=== PATIENT | female | born 1970 | race Caucasian/White ===

== ENCOUNTER 2016-05-22 07:13 | Day surgery (SDC) | payer BC ==
[2016-05-22] VITALS (7 sets, daily range): BP systolic 104–124; BP diastolic 51–77; PULSE 58–72; RESP 13–16; TEMP 98–98.6; O2SAT 95–100; Ht 165.1 cm; Wt 103.4 kg
[~2016-05-22] VITALS: Ht 165.1 cm; Wt 103.4 kg
[~2016-05-22 07:13] MED LIST: AMPH15TA2 PO; FLUO20CA30 PO; LIDOCAINE 1% (10mg/ml) 2ml SDV INJ ONE; LR 1,000 ML IV SCH
[2016-05-22] MEDS ORDERED: LIDOCAINE 1%/EPI 1:100,000 20ml MDV ONE (08:32)
--- NOTE | 2016-05-22 08:45 | ANESPREOP ---
Anesthesia Record Date and Time DATE: 05/22/16 TIME: 08:43 Pre-Op Diagnosis malignant melanoma Left Leg Proposed Surgical Procedure EXCISION OF MALIGNANT ON LT. LATERAL THIGH WITH LOCAL VS SKIN GRAFT NPO since: mn Allergies: Coded Allergies: No Known Allergies (Unverified , 05/22/16) Ht/Wt/BMI Height: 5 ' 5.00 " Weight: 103.400 kg BMI: 37.9 kg/m2 Vital Signs Date Time Temp Pulse Resp B/P Pulse Ox O2 Delivery O2 Flow Rate FiO2 05/22/16 07:42 98.6 67 13 124/77 98 Room Air Medications Inpatient Medications Current Medications Medications (Trade) Dose Ordered Sig/Mirta Start Time Stop Time Status Last Admin Dose Admin Lactated Ringer's (Lactated Ringers) 1,000 ml @ 50 mls/hr Q20H 05/22/16 07:00 05/22/16 08:16 50 MLS/HR Dextroamphetamine/Amphetamine (Adderall 15 mg Tablet) 15 Mg Tablet, 1 TAB PO BID , (Reported) Last Taken: on 05/21/16 1500 Fluoxetine HCl (Prozac) 20 Mg Capsule, 1 CAP PO DAILY, (Reported) Last Taken: on 05/21/16 0800 Currently on Beta Dereck: No Medical/Surgical History Anesthesia PMH: Reports: Cancer (Melanoma Left Thigh), Denies: Anesthesia Reactions, Glaucoma, Malignant Hyperthermia (no family history MH), Sleep Apnea Smoking Status: Current some day smoker Has pt. smoked today?: No Use Chewing Tobacco?: No Second Hand Exposure: No Substance Use Type: does not use Alcohol Intake: a few times a week Past Surgical History Orthopedic Surgeries: Abdominal Surgeries: Genitourinary Surgeries: Cardiac Surgeries: Endocrine Surgeries: Reproductive Surgeries: Neurological Surgeries: Ear Surgeries: Nose Surgeries: Throat Surgeries: Yes - TONSILLECTOMY Other Surgeries: Yes - WISDOM TEETH REMOVED Anesthesia Adverse Reactions: FOUND none Family Hx of Anesthesia Advers: none Hx of Motion Sickness: No Pertinent Findings Test 05/22/16 07:35 Urine Test Negative (NEGATIVE) EKG Rhythm: Sinus Bradycardia Physical Exam Respiratory: Lungs clear Cardiovascular: FOUND Regular rate, rhythm, FOUND No murmur Airway Assessment Mallampati Score: I TMD: 3 Fingerbreadths Neck Extension: Good Overall Assessment: No Airway Concerns ASA: 2 Plan Anesthesia Plan: TIVA Discussion Discussed risks/options/alternatives of anesthesia and questions answered. Patient consents. Nursing pain assessment noted. Present: Spouse Attestation Statement Prior to the delivery of any anesthetic medication, I examined the patient, developed the plan, obtained the patient's consent and discussed the risk and benefits of the procedure with the patient/guardian. MICHAELLE PARRISH CRNA May 22, 2016 08:45
[2016-05-22] MEDS ORDERED: FENTANYL 100mcg/2ml INJECTION ONE (08:56)
[2016-05-22] MEDS ORDERED: PROPOFOL 500mg 50 ML IV ONE (08:56)
[2016-05-22] MEDS ORDERED: MIDAZOLAM 2mg/2ml INJECTION IV ONE (09:00)
[2016-05-22] MEDS ORDERED: CEFAZOLIN 1 GRAM INJECTION IV ONE (09:00)
--- NOTE | 2016-05-22 09:33 | PDPROCED ---
Procedure Note Date 05/22/16 Procedure Name Wide re-excision of malignant melanoma left lateral thigh with complex closure: Incision size 3 cm, excision size 5 cm, final defect [id number] Procedure Detail Preop dx: Status post excision of malignant melanoma left lateral thigh: Breslow level 0.4 mm; margins clear, tumor within 2.2 mm Postop dx: Same Anesthesia: TIVA EBL: Less than 15 ml Case: Clean Complications: None ADOLFO GARIBAY MD May 22, 2016 09:33
[2016-05-22] MEDS ORDERED: CEPH-583 PO (09:51)
[2016-05-22] MEDS ORDERED: ACET1TAB12 PO (09:51)
[2016-05-22] MEDS ORDERED: ONDANSETRON 4mg/2ml INJECTION IV PRN (10:00)
[2016-05-22] MEDS ORDERED: ATROPINE 1mg/10ml Syringe IV PRN (10:00)
[2016-05-22] MEDS ORDERED: HYDROCODONE/APAP 5 mg/325 mg TABLET PO PRN (10:00)
--- NOTE | 2016-05-22 10:05 | ANESPO ---
Post-Op Note Date 05/22/16 Time: 10:05 Status Pt Participated in Evaluation: Pt participated in person Vital Signs Date Time Temp Pulse Resp B/P Pulse Ox O2 Delivery O2 Flow Rate FiO2 05/22/16 07:42 98.6 67 13 124/77 98 Room Air Respiratory Function: Airway patent, Regular respirations Cardiovascular Function: Regular pulse Mental Status: Alert/oriented Pain Level Intensity: 1 Hydration: Taking po fluids Complications during Recovery None apparent Follow-Up Instructions Instructions Per Surgeon CONCHA MICHAELS CRNA May 22, 2016 10:05
--- NOTE | 2016-05-22 12:26 | OPNOTEF ---
DATE OF OPERATION 05/22/2016 PREOPERATIVE DIAGNOSIS Status post excision of malignant melanoma left lateral thigh: Breslow level 0.4 mm; margins clear, tumor within 2.2 mm of closest margin POSTOPERATIVE DIAGNOSIS Status post excision of malignant melanoma left lateral thigh: Breslow level 0.4 mm; margins clear, tumor within 2.2 mm of closest margin OPERATION Wide reexcision of malignant melanoma of left lateral thigh with complex closure : incision size 3 cm, excision size 5 cm, final defect 5.5 x 4 x 2 cm. SURGEON Chloe Gamboa M.D. ANESTHESIA TIVA INDICATIONS The patient is a 45-year-old woman who presented to the office to discuss treatment options of malignant melanoma of her left lateral thigh; she had initially been referred by Dr. Boni Taylor. The pigmented lesion of her left lateral thigh had been present for an unknown period of time. She had first noticed it approximately six months ago because it became raised. She denied any bleeding. 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 However, when complete excision of the lesion was performed, malignant melanoma with Breslow level of 0.4 cm was the final diagnosis. There was no ulceration or increased mitotic rate. The tumor was also within 2.2 mm of the closest margin and thus it was deemed advisable to proceed with a wide reexcision of the site. On exam, she had a 3 cm healing incision site. In detailed discussion with the patient preoperatively, the risks, benefits and alternatives of wider excision were reviewed including, but not limited to, bleeding, infection, poor or keloid scarring, residual and/ or recurrent disease, partial or complete loss of the flap or graft. We specifically discussed that we would attempt to close the wound primarily; however, if this were not possible, local flap versus a graft would be performed. The patient understood and wished to proceed. DESCRIPTION OF PROCEDURE The patient was marked preoperatively and then brought to the operating room where, after suitable TIVA had been obtained, the left leg was prepped and draped in the usual sterile manner. The involved area was then infiltrated with 1% lidocaine with epinephrine. The lesion was then excised with 1 cm margins in the skin and down to the fascial layer. This was then handed off as a specimen with a tag at the 12 o'clock proximal position. The wound was widely undermined and at the time it was noted that it was possible to close the wound primarily. This was done in several layers after removing the dog ears, using interrupted buried sutures of 3-0 PDS, a running 3-0 polyglyconate V-Loc suture for the dermal layer, and a running subcuticular suture of 4-0 Monocryl. Benzoin and Steri-Strips were applied, as well as a dry sterile dressing and Mefix tape. The patient was then brought to the recovery room in stable condition. Estimated blood loss was less than 50 mL. The case was clean. Specimens: Reexcision of the malignant melanoma excision site. MTDD
== END 2016-05-22 10:55 | disposition home or self-care (01) ==
LOC: SCU 07:13
PROVIDERS: ATTEND Surgery Plastic and Reconstructive Surgery
DX: C43.72 Malignant melanoma of left lower limb, including hip (principal)
CPT/HCPCS: 11606; 13121; 81025; J0690; J2250; J2704; J3010; J7120

== ENCOUNTER → 2016-06-14 | Outpatient (CLI) | payer BC ==
[~2016-06-14] MED LIST changes: +ACET1TAB12 PO; +CEPH-583 PO; -LIDOCAINE 1% (10mg/ml) 2ml SDV INJ ONE; -LR 1,000 ML IV SCH
[2016-06-14 12:16] LABS: BASOPHILS % (AUTO) 0.2 % (0-2); EOSINOPHILS # (AUTO) 0.2 T/MM3 (0-0.5); HCT - HEMATOCRIT 41.5 % (36-46); IMMATURE GRANULOCYTE # (AUTO) 0.01 T/MM3 (0.00-0.03); IMMATURE GRANULOCYTE % (AUTO) 0.1 % (0.0-0.5); LYMPHOCYTES # (AUTO) 3.3 T/MM3 (1-4.8); LYMPHOCYTES % (AUTO) 39.3 % (23-45); MEAN CORPUSCULAR HGB CONC(MCHC 33.7 GM/DL (31-37); MEAN CORPUSCULAR VOLUME 91.8 UM3 (80-100); MEAN PLATELET VOLUME 10.4 UM3 (9.4-12.4); MONOCYTES # (AUTO) 0.6 T/MM3 (0-0.8); MONOCYTES % (AUTO) 7.1 % (0-9.0); NEUTROPHILS #(AUTO)-ABSOLUTE 4.3 T/MM3 (1.8-7.7); NEUTROPHILS % (AUTO) 51.3 % (33-66); RED BLOOD COUNT 4.52 M/MM3 (4.00-5.20); WBC - WHITE BLOOD COUNT 8.3 T/MM3 (4.5-11.0)
[2016-06-14 12:32] LABS: ALBUMIN 4.6 G/DL (3.5-5.0); ALBUMIN/GLOBULIN RATIO 1.4 RATIO (1.1-2.2); ALKALINE PHOSPHATASE 80 U/L (38-126); ALT (SGPT) 48 U/L (9-52); ANION GAP 14 MEQ/L (5-15); AST (SGOT) 31 U/L (14-36); BUN/CREATININE RATIO 15 RATIO (6-26); CALCIUM 10.1 MG/DL (8.4-10.2); CHLORIDE 104 MEQ/L (98-107); CO2 - CARBON DIOXIDE 25 MEQ/L (22-30); CREATININE 0.8 MG/DL (0.7-1.2); GLOMERULAR FILTRATION RATE 78; GLUCOSE 108 MG/DL (65-110); LDH 371 U/L (313-618); POTASSIUM 4.6 MEQ/L (3.6-5); SODIUM 143 MEQ/L (134-144)
--- NOTE | 2016-06-14 13:12 | DI ---
INDICATION: ITS.REASON: C43.72 Malignant melanoma of left lower limb, including hip PROCEDURE: CHEST 2-VIEWS UPRIGHT (PA \T\ LAT) Encounter: Initial COMPARISON: None FINDINGS: The lungs are clear without evidence of focal abnormal airspace opacity. There is no pleural effusion or pneumothorax. The heart size, mediastinal contours and pulmonary vascularity are within normal limits. There is no significant skeletal abnormality. IMPRESSION: No acute cardiopulmonary disease. No radiographic evidence of pulmonary metastatic disease. .
== END ==
LOC: IMA 11:55
PROVIDERS: ATTEND Internal Medicine Hematology & Oncology
DX: C43.72 Malignant melanoma of left lower limb, including hip (principal)
CPT/HCPCS: 36415; 80053; 83615; 85025